=== PATIENT | male | born 1975 | race Caucasian/White ===

== ENCOUNTER 2016-06-16 15:30 | Emergency (ER) | payer OTHER ==
[2016-06-16] MEDS ORDERED: VANCOMYCIN 1000 MG/20 ML VIAL (J3370) As Ordered ONE (17:01)
--- NOTE | 2016-06-16 18:59 | EDDOCDS ---
Physician Documentation [facility] Name: Ta Day Age: 40 yrs Sex: Male : 1975 Arrival Date: 06/16/2016 Time: 15:30 Bed I1 / M1 Private MD: [place] A. Disposition: 06/16/16 17:15 Discharged to Home/Self Care. Impression: Cellulitis of face - periorbital. - Condition is Stable. - Discharge Instructions: Cellulitis, Cellulitis, [id number]. - Prescriptions for Doxycycline Monohydrate 100 mg Oral Tablet - take 1 tablet by ORAL route every 12 hours for 10 days; 20 tablet. - Medication Reconciliation, Local Pharmacy Hours form. - Follow up: Emergency Department; When: Tomorrow; Reason: Recheck today's complaints. - Problem is new. - Symptoms are unchanged. Historical: - Allergies: Keflex (Rash); PENICILLINS (Unknown); - Home Meds: 1. Atarax 25 mg Oral tab 1 tab 4 times per day - PMHx: Anxiety; PTSD; Hypertension; - PSHx: none; - Social history: Smoking status: Patient uses tobacco products, heavy tobacco smoker. No barriers to communication noted, The patient speaks fluent Namibian, Speaks appropriately for age. - Family history: Not pertinent. - : The pt / caregiver states he / she is not on anticoagulants. Home medication list is obtained from the patient. - Exposure Risk Screening:: None identified. Vital Signs: 06/16 15:32 BP 159 / 99 RA Sitting (auto/reg); Pulse 76; Resp 18; Temp 97.3(O); Pulse Ox 99% on jrd R/A; Weight 83.01 kg / 183.01 lbs (R); Height 6 ft. 0 in. (182.88 cm); Pain 6/10; 18:35 BP 125 / 83; Pulse 69; Resp 17; Temp 98.0(O); Pulse Ox 97% on R/A; lr2 15:32 Body Mass Index 24.82 (83.01 kg, 182.88 cm) jrd MDM: 16:38 vancomycin (loading dose for pt. wt. >= 80kg) 2000 mg IVPB once ordered. sd1 17:35 Financial registration complete. zo 17:42 [facility] Payment Agreement was scanned into [employer] and attached to record. zo Administered Medications: 17:17 Drug: vancomycin (loading dose for pt. wt. >= 80kg) 2000 mg Route: IVPB; Site: left mk4 antecubital; Signatures: Kasey Bernard MD MD sd1 Theresa Duff JoshuaRN RN jmb Marisa Fernando RN RN mk4 Shawnee Lora RN RN kc3 The chart was reviewed and I authenticate all verbal orders and agree with the evaluation and treatment provided.Attachments: 17:42 [facility] Payment Agreement zo MTDD
--- NOTE | 2016-06-16 18:59 | EDDOCDS ---
Nurse's Notes [facility] Name: Ta Day Age: 40 yrs Sex: Male : 1975 Arrival Date: 06/16/2016 Time: 15:30 Bed I1 / M1 Private MD: [place] A. Diagnosis: Cellulitis of face-periorbital Presentation: 06/16 15:34 Presenting complaint: Patient states: Patient reports eye swelling. Patient denies jmb drainage. Patient reports present since 4 days ago. Patient reports that it was completely closed and got eye open with warm water this morning. Mechanism of Injury: No Mechanism of Injury. The patient denies any loss of vision. Adult Sepsis Screening: The patient does not have new or worsening altered mentation. Patient's respiratory rate is less than 22. Systolic blood pressure is greater than 100. Patient has a qSOFA score of 0- Negative Sepsis Screen. Suicide/Homicide risk assessment- the patient denies having any suicidal and/or homicidal ideations and does not present with any other emotional, behavioral or mental health complaints. 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 Transition of care: patient was not received from another setting of care. 15:34 Acuity: SHANNON Level 4 [facility] 15:34 Method Of Arrival: Walkin/Carried/Asstd [facility] Triage Assessment: 15:35 General: Appears in no apparent distress, Behavior is appropriate for age, cooperative. b Pain: Location: left eye Pain currently is 6 out of 10 on a pain scale. HIV screening NA for this visit Offered previously. Neurological: Level of Consciousness is awake, alert, obeys commands, Oriented to person, place, time, Speech is normal, Facial symmetry appears normal, Facial symmetry: tongue is midline. EENT: No deficits noted. Respiratory: Airway is patent Respiratory effort is even, unlabored, Respiratory pattern is regular, symmetrical. Derm: Skin is pink, warm & dry. Musculoskeletal: Range of motion intact in all extremities. Historical: - Allergies: Keflex (Rash); PENICILLINS (Unknown); - Home Meds: 1. Atarax 25 mg Oral tab 1 tab 4 times per day - PMHx: Anxiety; PTSD; Hypertension; - PSHx: none; - Social history: Smoking status: Patient uses tobacco products, heavy tobacco smoker. No barriers to communication noted, The patient speaks fluent Romanian, Speaks appropriately for age. - Family history: Not pertinent. - : The pt / caregiver states he / she is not on anticoagulants. Home medication list is obtained from the patient. - Exposure Risk Screening:: None identified. Screenin:06 Screening information is obtained from the patient. Fall risk: No risks identified. kc3 Assistance ADL's: requires no assistance with activities of daily living. Abuse/DV Screen: The patient / caregiver reports he/she is: not in a situation that causes fear, pain or injury. Nutritional screening: No deficits noted. Advance Directives: Currently, there is no health care proxy. home support is adequate. Assessment: 17:05 General: Appears in no apparent distress, comfortable, Behavior is appropriate for age, kc3 cooperative. Neurological: No deficits noted. Respiratory: No deficits noted. Derm: Swollen area noted on face. 17:07 EENT: Eyes clear. Sclera/Cornea are clear in right eye and left eye. kc3 17:41 General: Appears in no apparent distress, comfortable, iv vanco infusing . mk4 18:58 General: Appears in no apparent distress, comfortable, Behavior is cooperative, iv mk4 antibiotics infused and IV d/cd . Vital Signs: 15:32 BP 159 / 99 RA Sitting (auto/reg); Pulse 76; Resp 18; Temp 97.3(O); Pulse Ox 99% on jrd R/A; Weight 83.01 kg (R); Height 6 ft. 0 in. (182.88 cm); Pain 6/10; 18:35 BP 125 / 83; Pulse 69; Resp 17; Temp 98.0(O); Pulse Ox 97% on R/A; lr2 15:32 Body Mass Index 24.82 (83.01 kg, 182.88 cm) [facility] Vitals: 15:32 Log In Time: June 16, 2016 at 15:30. [facility] ED Course: 15:31 Patient visited by Donavan Pierre PCA. jrd 15:31 Patient moved to Waiting jrd 15:32 [place] is Private Physician. jrd 15:33 Patient visited by Donavan Pierre PCA. jrd 15:33 Patient moved to Pre RCE jrd 15:35 Triage Initiated jolynn 16:24 Kasey Bernard MD is Attending Physician. sd1 16:24 Patient moved to I10 / 23 ml6 16:31 Patient visited by Marisa Fernando, GRACY. mk4 16:32 Patient visited by Kasey Bernard MD. sd1 16:49 Patient moved to I1 / M1 mk4 17:05 The patient / caregiver is instructed regarding the plan of care and ED course. kc3 17:05 Inserted saline lock: 20 gauge in left antecubital area The patient tolerated the kc3 procedure well. 17:08 Patient visited by Shawnee Lora,GRACY. kc3 17:41 No procedures done that require assistance. mk4 17:42 Patient name changed from Ta\S\\S\Shay\S\ to At\S\ \S\[facility]. EDMS 17:42 [facility] Payment Agreement was scanned into [employer] and attached to record. zo 18:56 Discontinued IV lock bleeding controlled, pressure dressing applied. mk4 Administered Medications: 17:17 Drug: vancomycin (loading dose for pt. wt. >= 80kg) 2000 mg Route: IVPB; Site: left mk4 antecubital; Order Results: There are currently no results for this order. Outcome: 17:15 Discharge ordered by Provider. sd1 18:56 Discharge Assessment: Patient awake, alert and oriented x 3. No cognitive and/or mk4 functional deficits noted. Patient verbalized understanding of disposition instructions. Patient awake and alert. Discharge Assessment: patient administered narcotics - no. The following High Risk Discharge criteria are identified: None. Condition: good Condition: stable. 18:58 Patient left the ED. 4 Signatures: Dispatcher MedHo EDCT Kasey Bernard MD MD sd1 Theresa Duff Matthew, RN RN ml6 Laurent AnnRN RN laurib Marisa Fernando, RN RN mk4 Donavan Pierre, ANTONIO PROMOTIONS MANAGER jrd Shawnee Lora,GRACY RN phil3 Michelle Batres lr2 MTDD
--- NOTE | 2016-06-18 19:59 | EDDOCDS ---
Nurse's Notes [facility] Name: Ta Day Age: 40 yrs Sex: Male : 1975 Arrival Date: 06/16/2016 Time: 15:30 Bed I1 / M1 Private MD: Joens Beach A. Diagnosis: Cellulitis of face-periorbital Presentation: 06/16 15:34 Presenting complaint: Patient states: Patient reports eye swelling. Patient denies jmb drainage. Patient reports present since 4 days ago. Patient reports that it was completely closed and got eye open with warm water this morning. Mechanism of Injury: No Mechanism of Injury. The patient denies any loss of vision. Adult Sepsis Screening: The patient does not have new or worsening altered mentation. Patient's respiratory rate is less than 22. Systolic blood pressure is greater than 100. Patient has a qSOFA score of 0- Negative Sepsis Screen. Suicide/Homicide risk assessment- the patient denies having any suicidal and/or homicidal ideations and does not present with any other emotional, behavioral or mental health complaints. 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 Transition of care: patient was not received from another setting of care. 15:34 Acuity: SHANNON Level [address] [facility] 15:34 Method Of Arrival: Walkin/Carried/Asstd [facility] Triage Assessment: 15:35 General: Appears in no apparent distress, Behavior is appropriate for age, cooperative. b Pain: Location: left eye Pain currently is 6 out of 10 on a pain scale. HIV screening NA for this visit Offered previously. Neurological: Level of Consciousness is awake, alert, obeys commands, Oriented to person, place, time, Speech is normal, Facial symmetry appears normal, Facial symmetry: tongue is midline. EENT: No deficits noted. Respiratory: Airway is patent Respiratory effort is even, unlabored, Respiratory pattern is regular, symmetrical. Derm: Skin is pink, warm & dry. Musculoskeletal: Range of motion intact in all extremities. Historical: - Allergies: Keflex (Rash); PENICILLINS (Unknown); - Home Meds: 1. Atarax 25 mg Oral tab 1 tab 4 times per day - PMHx: Anxiety; PTSD; Hypertension; - PSHx: none; - Social history: Smoking status: Patient uses tobacco products, heavy tobacco smoker. No barriers to communication noted, The patient speaks fluent Syriac, Speaks appropriately for age. - Family history: Not pertinent. - : The pt / caregiver states he / she is not on anticoagulants. Home medication list is obtained from the patient. - Exposure Risk Screening:: None identified. Screenin:06 Screening information is obtained from the patient. Fall risk: No risks identified. kc3 Assistance ADL's: requires no assistance with activities of daily living. Abuse/DV Screen: The patient / caregiver reports he/she is: not in a situation that causes fear, pain or injury. Nutritional screening: No deficits noted. Advance Directives: Currently, there is no health care proxy. home support is adequate. Assessment: 17:05 General: Appears in no apparent distress, comfortable, Behavior is appropriate for age, kc3 cooperative. Neurological: No deficits noted. Respiratory: No deficits noted. Derm: Swollen area noted on face. 17:07 EENT: Eyes clear. Sclera/Cornea are clear in right eye and left eye. kc3 17:41 General: Appears in no apparent distress, comfortable, iv vanco infusing . mk4 18:58 General: Appears in no apparent distress, comfortable, Behavior is cooperative, iv mk4 antibiotics infused and IV d/cd . Vital Signs: 15:32 BP 159 / 99 RA Sitting (auto/reg); Pulse 76; Resp 18; Temp 97.3(O); Pulse Ox 99% on jrd R/A; Weight 83.01 kg (R); Height 6 ft. 0 in. (182.88 cm); Pain 6/10; 18:35 BP 125 / 83; Pulse 69; Resp 17; Temp 98.0(O); Pulse Ox 97% on R/A; lr2 15:32 Body Mass Index 24.82 (83.01 kg, 182.88 cm) [facility] Vitals: 15:32 Log In Time: June 16, 2016 at 15:30. [facility] ED Course: 15:31 Patient visited by Donavan Pierre PCA. jrd 15:31 Patient moved to Waiting jrd 15:32 [place] is Private Physician. jrd 15:33 Patient visited by Donavan Pierre PCA. jrd 15:33 Patient moved to Pre RCE jrd 15:35 Triage Initiated jolynn 16:24 Kasey Bernard MD is Attending Physician. sd1 16:24 Patient moved to I10 / 23 ml6 16:31 Patient visited by Marisa Fernando, GRACY. mk4 16:32 Patient visited by Kasey Bernard MD. sd1 16:49 Patient moved to I1 / M1 mk4 17:05 The patient / caregiver is instructed regarding the plan of care and ED course. kc3 17:05 Inserted saline lock: 20 gauge in left antecubital area The patient tolerated the kc3 procedure well. 17:08 Patient visited by Shawnee Lora,GRACY. kc3 17:41 No procedures done that require assistance. mk4 17:42 Patient name changed from Ta\S\\S\Shay\S\ to Ta\S\ \S\[facility]. EDMS 17:42 [facility] [place] [place] Payment Agreement was scanned into [employer] and attached to record. zo 18:56 Discontinued IV lock bleeding controlled, pressure dressing applied. 4 06/17 10:39 T-Sheet-- Draft Copy was scanned into [employer] and attached to record. gb Administered Medications: 06/16 17:17 Drug: vancomycin (loading dose for pt. wt. >= 80kg) 2000 mg Route: IVPB; Site: left mk4 antecubital; Order Results: There are currently no results for this order. Outcome: 17:15 Discharge ordered by Provider. sd1 18:56 Discharge Assessment: Patient awake, alert and oriented x 3. No cognitive and/or mk4 functional deficits noted. Patient verbalized understanding of disposition instructions. Patient awake and alert. Discharge Assessment: patient administered narcotics - no. The following High Risk Discharge criteria are identified: None. Condition: good Condition: stable. 18:58 Patient left the ED. mk4 18:58 No special radiology studies were completed. Property sent home with patient. mk4 Signatures: Dispatcher MedHo EDNC Kasey Bernard MD MD sd1 Janel Flores, Bala Reg Theresa Russell Matthew, RN RN ml6 Laurent Ann RN RN jmb Marisa Fernando, RN RN mk4 Donavan Pierre, RELIEF COOK RELIEF COOK jrd Shawnee Lora,RN RN phil3 Michelle Batres Chart Complete MTDD
--- NOTE | 2016-06-18 19:59 | EDDOCDS ---
Physician Documentation [facility] Name: Ta Day Age: 40 yrs Sex: Male : 1975 Arrival Date: 06/16/2016 Time: 15:30 Bed I1 / M1 Private MD: [place] A. Disposition: 06/16/16 17:15 Discharged to Home/Self Care. Impression: Cellulitis of face - periorbital. - Condition is Stable. - Discharge Instructions: Cellulitis, Cellulitis, [id number]. - Prescriptions for Doxycycline Monohydrate 100 mg Oral Tablet - take 1 tablet by ORAL route every 12 hours for 10 days; 20 tablet. - Medication Reconciliation, Local Pharmacy Hours form. - Follow up: Emergency Department; When: Tomorrow; Reason: Recheck today's complaints. - Problem is new. - Symptoms are unchanged. Historical: - Allergies: Keflex (Rash); PENICILLINS (Unknown); - Home Meds: 1. Atarax 25 mg Oral tab 1 tab 4 times per day - PMHx: Anxiety; PTSD; Hypertension; - PSHx: none; - Social history: Smoking status: Patient uses tobacco products, heavy tobacco smoker. No barriers to communication noted, The patient speaks fluent Bahraini, Speaks appropriately for age. - Family history: Not pertinent. - : The pt / caregiver states he / she is not on anticoagulants. Home medication list is obtained from the patient. - Exposure Risk Screening:: None identified. Vital Signs: 06/16 15:32 BP 159 / 99 RA Sitting (auto/reg); Pulse 76; Resp 18; Temp 97.3(O); Pulse Ox 99% on jrd R/A; Weight 83.01 kg / 183.01 lbs (R); Height 6 ft. 0 in. (182.88 cm); Pain 6/10; 18:35 BP 125 / 83; Pulse 69; Resp 17; Temp 98.0(O); Pulse Ox 97% on R/A; lr2 15:32 Body Mass Index 24.82 (83.01 kg, 182.88 cm) jrd MDM: 16:38 vancomycin (loading dose for pt. wt. >= 80kg) 2000 mg IVPB once ordered. sd1 17:35 Financial registration complete. zo 17:42 [facility] Payment Agreement was scanned into [employer] and attached to record. zo 06/17 10:39 T-Sheet-- Draft Copy was scanned into [employer] and attached to record. gb Administered Medications: 06/16 17:17 Drug: vancomycin (loading dose for pt. wt. >= 80kg) 2000 mg Route: IVPB; Site: left mk4 antecubital; Signatures: Kasey Bernard MD MD sd1 Janel Flores, Reg Reg gb Theresa Duff Joshua, RN RN jmb Marisa Fernando RN RN mk4 Shawnee Lora RN RN kc3 The chart was reviewed and I authenticate all verbal orders and agree with the evaluation and treatment provided.Attachments: 17:42 [facility] Payment Agreement zo 06/17 10:39 T-Sheet-- Draft Copy gb Chart Complete MTDD
--- NOTE | 2016-06-18 19:59 | EDDOCDS ---
Physician Documentation [facility] Name: Ta Day Age: 40 yrs Sex: Male : 1975 Arrival Date: 06/16/2016 Time: 15:30 Bed I1 / M1 Private MD: [place] A. Disposition: 06/16/16 17:15 Discharged to Home/Self Care. Impression: Cellulitis of face - periorbital. - Condition is Stable. - Discharge Instructions: Cellulitis, Cellulitis, [id number]. - Prescriptions for Doxycycline Monohydrate 100 mg Oral Tablet - take 1 tablet by ORAL route every 12 hours for 10 days; 20 tablet. - Medication Reconciliation, Local Pharmacy Hours form. - Follow up: Emergency Department; When: Tomorrow; Reason: Recheck today's complaints. - Problem is new. - Symptoms are unchanged. Historical: - Allergies: Keflex (Rash); PENICILLINS (Unknown); - Home Meds: 1. Atarax 25 mg Oral tab 1 tab 4 times per day - PMHx: Anxiety; PTSD; Hypertension; - PSHx: none; - Social history: Smoking status: Patient uses tobacco products, heavy tobacco smoker. No barriers to communication noted, The patient speaks fluent Andorran, Speaks appropriately for age. - Family history: Not pertinent. - : The pt / caregiver states he / she is not on anticoagulants. Home medication list is obtained from the patient. - Exposure Risk Screening:: None identified. Vital Signs: 06/16 15:32 BP 159 / 99 RA Sitting (auto/reg); Pulse 76; Resp 18; Temp 97.3(O); Pulse Ox 99% on jrd R/A; Weight 83.01 kg / 183.01 lbs (R); Height 6 ft. 0 in. (182.88 cm); Pain 6/10; 18:35 BP 125 / 83; Pulse 69; Resp 17; Temp 98.0(O); Pulse Ox 97% on R/A; lr2 15:32 Body Mass Index 24.82 (83.01 kg, 182.88 cm) jrd MDM: 16:38 vancomycin (loading dose for pt. wt. >= 80kg) 2000 mg IVPB once ordered. sd1 17:35 Financial registration complete. zo 17:42 [facility] Payment Agreement was scanned into [employer] and attached to record. zo 06/17 10:39 T-Sheet-- Draft Copy was scanned into [employer] and attached to record. gb Administered Medications: 06/16 17:17 Drug: vancomycin (loading dose for pt. wt. >= 80kg) 2000 mg Route: IVPB; Site: left mk4 antecubital; Signatures: Kasey Bernard MD MD sd1 Janel Flores, Reg Reg gb Theresa Duff Joshua, RN RN jmb Marisa Fernando RN RN mk4 Shawnee Lora RN RN kc3 The chart was reviewed and I authenticate all verbal orders and agree with the evaluation and treatment provided.Attachments: 17:42 [facility] zo 06/17 10:39 T-Sheet-- Draft Copy gb Chart Complete MTDD
== END 2016-06-16 18:58 | disposition home or self-care (01) ==
LOC: M ED 15:30
DX: L03.213 Periorbital cellulitis (principal); F41.9 Anxiety disorder, unspecified; F43.10 Post-traumatic stress disorder, unspecified; I10 Essential (primary) hypertension; Z72.0 Tobacco use; Z79.899 Other long term (current) drug therapy; Z88.0 Allergy status to penicillin; Z88.1 Allergy status to other antibiotic agents
CPT/HCPCS: 96374; 99283; J3370

== ENCOUNTER 2016-06-17 12:08 | Emergency (ER) | payer OTHER ==
--- NOTE | 2016-06-17 12:48 | EDDOCDS ---
Nurse's Notes [facility] Name: Ta Day Age: 40 yrs Sex: Male : 1975 Arrival Date: 06/17/2016 Time: 12:08 Bed I10 23 Private MD: [place] A. Diagnosis: Cellulitis of face-improved Presentation: 06/17 12:23 Presenting complaint: Patient states: here for a recheck of his left eye - states it kcs feels a lot better "actually open this am when got up". Adult Sepsis Screening: The patient does not have new or worsening altered mentation. Patient's respiratory rate is less than 22. Systolic blood pressure is greater than 100. Patient has a qSOFA score of 0- Negative Sepsis Screen. Suicide/Homicide risk assessment- the patient denies having any suicidal and/or homicidal ideations and does not present with any other emotional, behavioral or mental health complaints. 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 Transition of care: patient was not received from another setting of care. 12:23 Acuity: SHANNON Level 5 kcs 12:23 Method Of Arrival: Walkin/Carried/Asstd kcs Triage Assessment: 12:26 General: Appears comfortable, well developed, well nourished, well groomed, Behavior is kcs cooperative, pleasant. Pain: Location: left eye Pain currently is 2 out of 10 on a pain scale. HIV screening NA for this visit Offered previously. Neurological: Level of Consciousness is awake, alert. Respiratory: Airway is patent Respiratory effort is even, unlabored, Respiratory pattern is regular, symmetrical. Derm: Skin is intact, is healthy with good turgor, Skin is dry, Skin is normal. 12:30 EENT: swelling to left eye much improved from yesterday . mk4 Historical: - Allergies: Keflex (Rash); PENICILLINS (Unknown); - Home Meds: 1. Atarax 25 mg Oral tab 1 tab 4 times per day 2. doxycycline hyclate 100 mg oral cap every 12 hours hasn't started yet - PMHx: Anxiety; Hypertension; PTSD; - PSHx: none; - Social history: Smoking status: Patient uses tobacco products, heavy tobacco smoker. No barriers to communication noted, The patient speaks fluent Danish. - Family history: Not pertinent. - : The pt / caregiver states he / she is not on anticoagulants. Home medication list is obtained from the patient. - Exposure Risk Screening:: None identified. Screenin:29 Screening information is obtained from the patient. Primary language is Danish. Fall mk4 risk: No risks identified. Assistance ADL's: requires no assistance with activities of daily living. Abuse/DV Screen: The patient / caregiver reports he/she is: not in a situation that causes fear, pain or injury. Nutritional screening: No deficits noted. Advance Directives: Currently, there is no health care proxy. There is no active DNR order. There is no living will. There is no Power of Truck Driver. Advance directive information has not previously been placed in an [facility] medical record. Further advance directive information is declined. 12:46 home support is adequate. mk4 Assessment: 12:29 General: Appears in no apparent distress. Pain: Denies pain. Awake, alert, oriented. mk4 Skin warm and dry. Moves all extremities. No apparent distress. The patient / caregiver is instructed regarding the plan of care and ED course. Physical assessment to be completed by PA/ED. Vital Signs: 12:09 BP 161 / 101; Pulse 82; Resp 18 S; Temp 97.9(O); Pulse Ox 97% on R/A; Weight 83.01 kg gr2 (R); Height 6 ft. 0 in. (182.88 cm) (R); Pain 2/10; 12:09 Body Mass Index 24.82 (83.01 kg, 182.88 cm) gr2 Vitals: 12:09 Log In Time: June 17, 2016 at 12:09. gr2 ED Course: 12:09 Patient visited by Elisa Junior. gr2 12:09 [place] is Private Physician. gr2 12:09 Patient moved to Waiting gr2 12:10 Patient visited by Elisa Junior. gr2 12:10 Patient moved to Pre RCE gr2 12:24 Triage Initiated kcs 12:26 Patient moved to I10 / 23 kcs 12:27 Kasey Bernard MD is Attending Physician. sd1 12:29 Patient visited by Kasey Bernard MD. sd1 12:29 [place] is Referral Physician. sd1 12:29 Patient has correct armband on for positive identification. mk4 12:46 The patient / caregiver is instructed regarding the plan of care and ED course. mk4 12:46 No IV's were initiated during this patient's visit. No procedures done that require mk4 assistance. Order Results: There are currently no results for this order. Outcome: 12:29 The following High Risk Discharge criteria are identified: None. mk4 12:30 Discharge ordered by Provider. sd1 12:31 Discharge Assessment: Patient awake, alert and oriented x 3. No cognitive and/or mk4 functional deficits noted. Patient verbalized understanding of disposition instructions. Patient awake and alert. Discharge Assessment: patient administered narcotics - no. Condition: good Condition: stable. No special radiology studies were completed. Property sent home with patient. 12:47 Patient left the ED. 4 Signatures: Kasey Bernard MD MD sd1 Liset Zelaya, RN RN Elisa Rollins gr2 Marisa Fernando RN RN mk4 MATTY
--- NOTE | 2016-06-17 12:48 | EDDOCDS ---
Physician Documentation [facility] Name: Ta Day Age: 40 yrs Sex: Male : 1975 Arrival Date: 06/17/2016 Time: 12:08 Bed I10 Private MD: [place] A. Disposition: 06/17/16 12:30 Discharged to Home/Self Care. Impression: Cellulitis of face - improved. - Condition is Stable. - Discharge Instructions: Cellulitis, Cellulitis, [id number]. - Medication Reconciliation, Local Pharmacy Hours form. - Follow up: [place]; When: 2 - 3 days; Reason: Recheck today's complaints. - Problem is new. - Symptoms have improved. - Notes: continue doxycyline Historical: - Allergies: Keflex (Rash); PENICILLINS (Unknown); - Home Meds: 1. Atarax 25 mg Oral tab 1 tab 4 times per day 2. doxycycline hyclate 100 mg oral cap every 12 hours hasn't started yet - PMHx: Anxiety; Hypertension; PTSD; - PSHx: none; - Social history: Smoking status: Patient uses tobacco products, heavy tobacco smoker. No barriers to communication noted, The patient speaks fluent Welsh. - Family history: Not pertinent. - : The pt / caregiver states he / she is not on anticoagulants. Home medication list is obtained from the patient. - Exposure Risk Screening:: None identified. Vital Signs: 06/17 12:09 BP 161 / 101; Pulse 82; Resp 18 S; Temp 97.9(O); Pulse Ox 97% on R/A; Weight 83.01 kg / gr2 183.01 lbs (R); Height 6 ft. 0 in. (182.88 cm) (R); Pain 2/10; 12:09 Body Mass Index 24.82 (83.01 kg, 182.88 cm) gr2 Signatures: Kasey Bernard MD MD sd1 Liset Zelaya RN RN kcs Marisa Fernando RN RN mk4 MTDD
--- NOTE | 2016-06-19 13:48 | EDDOCDS ---
Physician Documentation [facility] Name: Ta Day Age: 40 yrs Sex: Male : 1975 Arrival Date: 06/17/2016 Time: 12:08 Bed I10 23 Private MD: [place] A. Disposition: 06/17/16 12:30 Discharged to Home/Self Care. Impression: Cellulitis of face - improved. - Condition is Stable. - Discharge Instructions: Cellulitis, Cellulitis, [id number]. - Medication Reconciliation, Local Pharmacy Hours form. - Follow up: [place]; When: 2 - 3 days; Reason: Recheck today's complaints. - Problem is new. - Symptoms have improved. - Notes: continue doxycyline Historical: - Allergies: Keflex (Rash); PENICILLINS (Unknown); - Home Meds: 1. Atarax 25 mg Oral tab 1 tab 4 times per day 2. doxycycline hyclate 100 mg oral cap every 12 hours hasn't started yet - PMHx: Anxiety; Hypertension; PTSD; - PSHx: none; - Social history: Smoking status: Patient uses tobacco products, heavy tobacco smoker. No barriers to communication noted, The patient speaks fluent Azerbaijani. - Family history: Not pertinent. - : The pt / caregiver states he / she is not on anticoagulants. Home medication list is obtained from the patient. - Exposure Risk Screening:: None identified. Vital Signs: 06/17 12:09 BP 161 / 101; Pulse 82; Resp 18 S; Temp 97.9(O); Pulse Ox 97% on R/A; Weight 83.01 kg / gr2 183.01 lbs (R); Height 6 ft. 0 in. (182.88 cm) (R); Pain 2/10; 12:09 Body Mass Index 24.82 (83.01 kg, 182.88 cm) gr2 MDM: 06/18 12:27 T-Sheet-- Draft Copy was scanned into [employer] and attached to record. gb Signatures: Kasey Bernard MD MD sd1 Liset Zelaya, RN RN Janel Ruiz, Reg Reg gb Marisa Fernando RN RN mk4 The chart was reviewed and I authenticate all verbal orders and agree with the evaluation and treatment provided.Attachments: 12:27 T-Sheet-- Draft Copy gb Chart Complete MTDD
--- NOTE | 2016-06-19 13:48 | EDDOCDS ---
Nurse's Notes [facility] Name: Ta Day Age: 40 yrs Sex: Male : 1975 Arrival Date: 06/17/2016 Time: 12:08 Bed I10 23 Private MD: [place] A. Diagnosis: Cellulitis of face-improved Presentation: 06/17 12:23 Presenting complaint: Patient states: here for a recheck of his left eye - states it kcs feels a lot better "actually open this am when got up". Adult Sepsis Screening: The patient does not have new or worsening altered mentation. Patient's respiratory rate is less than 22. Systolic blood pressure is greater than 100. Patient has a qSOFA score of 0- Negative Sepsis Screen. Suicide/Homicide risk assessment- the patient denies having any suicidal and/or homicidal ideations and does not present with any other emotional, behavioral or mental health complaints. Status: Patient is not a hosted services analyst or dependent. Transition of care: patient was not received from another setting of care. 12:23 Acuity: SHANNON Level 5 kcs 12:23 Method Of Arrival: Walkin/Carried/Asstd kcs Triage Assessment: 12:26 General: Appears comfortable, well developed, well nourished, well groomed, Behavior is kcs cooperative, pleasant. Pain: Location: left eye Pain currently is 2 out of 10 on a pain scale. HIV screening NA for this visit Offered previously. Neurological: Level of Consciousness is awake, alert. Respiratory: Airway is patent Respiratory effort is even, unlabored, Respiratory pattern is regular, symmetrical. Derm: Skin is intact, is healthy with good turgor, Skin is dry, Skin is normal. 12:30 EENT: swelling to left eye much improved from yesterday . mk4 Historical: - Allergies: Keflex (Rash); PENICILLINS (Unknown); - Home Meds: 1. Atarax 25 mg Oral tab 1 tab 4 times per day 2. doxycycline hyclate 100 mg oral cap every 12 hours hasn't started yet - PMHx: Anxiety; Hypertension; PTSD; - PSHx: none; - Social history: Smoking status: Patient uses tobacco products, heavy tobacco smoker. No barriers to communication noted, The patient speaks fluent Samoan. - Family history: Not pertinent. - : The pt / caregiver states he / she is not on anticoagulants. Home medication list is obtained from the patient. - Exposure Risk Screening:: None identified. Screenin:29 Screening information is obtained from the patient. Primary language is Samoan. Fall mk4 risk: No risks identified. Assistance ADL's: requires no assistance with activities of daily living. Abuse/DV Screen: The patient / caregiver reports he/she is: not in a situation that causes fear, pain or injury. Nutritional screening: No deficits noted. Advance Directives: Currently, there is no health care proxy. There is no active DNR order. There is no living will. There is no Power of Director Of [employer]. Advance directive information has not previously been placed in an [facility] medical record. Further advance directive information is declined. 12:46 home support is adequate. mk4 Assessment: 12:29 General: Appears in no apparent distress. Pain: Denies pain. Awake, alert, oriented. mk4 Skin warm and dry. Moves all extremities. No apparent distress. The patient / caregiver is instructed regarding the plan of care and ED course. Physical assessment to be completed by PA/ED. Vital Signs: 12:09 BP 161 / 101; Pulse 82; Resp 18 S; Temp 97.9(O); Pulse Ox 97% on R/A; Weight 83.01 kg gr2 (R); Height 6 ft. 0 in. (182.88 cm) (R); Pain 2/10; 12:09 Body Mass Index 24.82 (83.01 kg, 182.88 cm) gr2 Vitals: 12:09 Log In Time: June 17, 2016 at 12:09. gr2 ED Course: 12:09 Patient visited by Elisa Junior. gr2 12:09 [place] is Private Physician. gr2 12:09 Patient moved to Waiting gr2 12:10 Patient visited by Elisa Junior. gr2 12:10 Patient moved to Pre RCE gr2 12:24 Triage Initiated kcs 12:26 Patient moved to I10 / 23 kcs 12:27 Kasey Bernard MD is Attending Physician. sd1 12:29 Patient visited by Kasey Bernard MD. sd1 12:29 [place] is Referral Physician. sd1 12:29 Patient has correct armband on for positive identification. mk4 12:46 The patient / caregiver is instructed regarding the plan of care and ED course. mk4 12:46 No IV's were initiated during this patient's visit. No procedures done that require mk4 assistance. 14:00 Patient name changed from Ta\\S\\\\S\\[facility]\\S\\ to Ta\\S\\ \\S\\[facility]. EDMS 06/18 12:27 T-Sheet-- Draft Copy was scanned into [employer] and attached to record. Order Results: There are currently no results for this order. Outcome: 06/17 12:29 The following High Risk Discharge criteria are identified: None. mk4 12:30 Discharge ordered by Provider. sd1 12:31 Discharge Assessment: Patient awake, alert and oriented x 3. No cognitive and/or mk4 functional deficits noted. Patient verbalized understanding of disposition instructions. Patient awake and alert. Discharge Assessment: patient administered narcotics - no. Condition: good Condition: stable. No special radiology studies were completed. Property sent home with patient. 12:47 Patient left the ED. 4 Signatures: [facility] Kasey Bernard MD MD sd1 Liset Zelaya, RN RN kcs Janel Flores, Reg Reg Elisa Calvo gr2 Marisa Fernando, RN RN mk4 Chart Complete MTDD
--- NOTE | 2016-06-19 13:48 | EDDOCDS ---
Physician Documentation [facility] Name: Ta Day Age: 40 yrs Sex: Male : 1975 Arrival Date: 06/17/2016 Time: 12:08 Bed I10 23 Private MD: [place] A. Disposition: 06/17/16 12:30 Discharged to Home/Self Care. Impression: Cellulitis of face - improved. - Condition is Stable. - Discharge Instructions: Cellulitis, Cellulitis, [id number]. - Medication Reconciliation, Local Pharmacy Hours form. - Follow up: [place]; When: 2 - 3 days; Reason: Recheck today's complaints. - Problem is new. - Symptoms have improved. - Notes: continue doxycyline Historical: - Allergies: Keflex (Rash); PENICILLINS (Unknown); - Home Meds: 1. Atarax 25 mg Oral tab 1 tab 4 times per day 2. doxycycline hyclate 100 mg oral cap every 12 hours hasn't started yet - PMHx: Anxiety; Hypertension; PTSD; - PSHx: none; - Social history: Smoking status: Patient uses tobacco products, heavy tobacco smoker. No barriers to communication noted, The patient speaks fluent Wallisian. - Family history: Not pertinent. - : The pt / caregiver states he / she is not on anticoagulants. Home medication list is obtained from the patient. - Exposure Risk Screening:: None identified. Vital Signs: 06/17 12:09 BP 161 / 101; Pulse 82; Resp 18 S; Temp 97.9(O); Pulse Ox 97% on R/A; Weight 83.01 kg / gr2 183.01 lbs (R); Height 6 ft. 0 in. (182.88 cm) (R); Pain 2/10; 12:09 Body Mass Index 24.82 (83.01 kg, 182.88 cm) gr2 MDM: 06/18 12:27 T-Sheet-- Draft Copy was scanned into [employer] and attached to record. gb Signatures: Kasey Bernard MD MD sd1 Liset Zelaya, RN RN Janel Ruiz, Reg Reg gb Marisa Fernando RN RN mk4 The chart was reviewed and I authenticate all verbal orders and agree with the evaluation and treatment provided.Attachments: 12:27 T-Sheet-- Draft Copy gb Chart Complete MTDD
== END 2016-06-17 12:47 | disposition home or self-care (01) ==
LOC: M ED 12:08
DX: H00.034 Abscess of left upper eyelid (principal); I10 Essential (primary) hypertension; F43.10 Post-traumatic stress disorder, unspecified; F41.9 Anxiety disorder, unspecified; Z88.0 Allergy status to penicillin; Z88.1 Allergy status to other antibiotic agents

== ENCOUNTER 2016-07-17 21:27 | Emergency (ER) | payer OTHER ==
[~2016-07-17] VITALS: Ht 182.9 cm; Wt 90.7 kg
[2016-07-17 21:28] VITALS: BP 144/94
[2016-07-17] MEDS ORDERED: HYDR25T PO (21:45)
== END 2016-07-18 01:57 | disposition left against medical advice (07) ==
LOC: M ED 22:41
DX: S69.91XA Unspecified injury of right wrist, hand and finger(s), initial encounter (principal); W22.8XXA Striking against or struck by other objects, initial encounter; Y92.89 Other specified places as the place of occurrence of the external cause; Y93.89 Activity, other specified; Y99.8 Other external cause status; F17.210 Nicotine dependence, cigarettes, uncomplicated; Z53.29 Procedure and treatment not carried out because of patient's decision for other reasons

== ENCOUNTER 2016-07-19 15:11 | Emergency (ER) | payer OTHER ==
[~2016-07-19] VITALS: Ht 182.9 cm; Wt 90.7 kg
[~2016-07-19 15:11] MED LIST: HYDR25T PO
--- NOTE | 2016-07-19 16:09 | REP ---
Clinical: Trauma. Technique: AP, lateral, bilateral oblique views of the right hand. Findings: There is an acute, angulated fracture involving the distal aspect of the fifth metacarpal bone (boxer's fracture). Remainder examination is relatively normal for age and no further acute fracture or dislocation is appreciated. Impression: Boxer's fracture involving the distal aspect of the fifth metacarpal bone. Signed by Julio James MD 07/19/2016 04:00 P
[2016-07-19 16:59] VITALS: BP 138/80
== END 2016-07-19 17:03 | disposition home or self-care (01) ==
LOC: M ED 16:14
DX: S62.306A Unspecified fracture of fifth metacarpal bone, right hand, initial encounter for closed fracture (principal); X58.XXXA Exposure to other specified factors, initial encounter; Y92.89 Other specified places as the place of occurrence of the external cause; Y93.89 Activity, other specified; Y99.8 Other external cause status; B19.20 Unspecified viral hepatitis C without hepatic coma; F19.21 Other psychoactive substance dependence, in remission; Z79.899 Other long term (current) drug therapy; Z88.0 Allergy status to penicillin; Z88.1 Allergy status to other antibiotic agents; F17.210 Nicotine dependence, cigarettes, uncomplicated

== ENCOUNTER 2016-11-13 18:47 | Emergency (ER) | payer OTHER ==
[~2016-11-13] VITALS: Ht 182.9 cm; Wt 84.1 kg
[2016-11-13 18:47] VITALS: BP 173/102
[~2016-11-13 18:47] MED LIST changes: +HYDR-3363 PO; -HYDR25T PO
[2016-11-13] MEDS ORDERED: IBUP-1114 PO (18:54)
[2016-11-13] MEDS ORDERED: NORCO, ANEXSIA 5/325MG TABLET (HYDROcodone/ACETAMINOPHEN) PO ONE (21:00)
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
== END 2016-11-13 21:16 | disposition home or self-care (01) ==
LOC: M ED 18:47
DX: S60.021A Contusion of right index finger without damage to nail, initial encounter (principal); X58.XXXA Exposure to other specified factors, initial encounter; Y92.015 Private garage of single-family (private) house as the place of occurrence of the external cause; Y99.9 Unspecified external cause status; Y93.9 Activity, unspecified; Z88.1 Allergy status to other antibiotic agents

== ENCOUNTER → 2018-07-15 | Outpatient (REF) | payer OTHER ==
[~2018-07-15] MED LIST changes: +IBUP-1114 PO
[2018-07-15 10:42] LABS: HEMATOCRIT 48.2 % (42.0-52.0); HEMOGLOBIN 16.8 g/dl (13.5-17.5); MEAN CORPUSCULAR HEMOGLOBIN 31.3 pg (27.0-33.0); MEAN CORPUSCULAR HGB CONC 34.9 g/dl (32.0-36.5); MEAN CORPUSCULAR VOLUME 89.8 fl (80.0-96.0); PLATELET COUNT, AUTOMATED 311 10^3/uL (150-450); RED BLOOD COUNT 5.37 10^6/uL (4.30-6.10); WHITE BLOOD COUNT 7.7 10^3/uL (4.0-10.0)
[2018-07-15 11:13] LABS: ALBUMIN 4.4 GM/DL (3.2-5.2); ALT/SGPT 70 U/L (12-78); BILIRUBIN,TOTAL 0.3 MG/DL (0.2-1.0); BLOOD UREA NITROGEN 12 MG/DL (7-18); CALCIUM LEVEL 9.4 MG/DL (8.5-10.1); CARBON DIOXIDE LEVEL 27 MEQ/L (21-32); CHLORIDE LEVEL 106 MEQ/L (98-107); CREATININE FOR GFR 1.12 MG/DL (0.70-1.30); FREE T4 1.07 NG/DL (0.76-1.46); GLOMERULAR FILTRATION RATE > 60.0 (>60); GLUCOSE, FASTING 85 MG/DL (70-100); POTASSIUM SERUM 4.4 MEQ/L (3.5-5.1); SODIUM LEVEL 142 MEQ/L (136-145); THYROID STIMULATING HORMONE 0.713 uIU/ML (0.358-3.740); TOTAL PROTEIN 7.8 GM/DL (6.4-8.2)
[2018-07-15 11:24] LABS: MALB URINE SIEMENS 36.5 MG/L; MAU/CREAT RATIO 18.3 MCG/MG (0.0-30.0)
[2018-07-15 11:53] LABS: HIV 1&2 SCREEN CENTAUR NEGATIVE (NEGATIVE)
[2018-07-16 11:36] LABS: HEPATITIS B SURFACE ANTIBODY NEGATIVE (POSITIVE)
[2018-07-16 11:47] LABS: HEPATITIS B SURFACE ANTIGEN NEGATIVE (NEGATIVE)
[2018-07-21 00:08] LABS: HCV RNA (INTERNATIONAL UNITS) 37145000 IU/mL (.); HEPATITIS A IgG TOTAL Negative (Negative); HEPATITIS B CORE ANTIBODY IGG Negative (Negative); HEPATITIS C QUANTITATION See Final Results IU/mL (.); HEPATITIS C VIRUS GENOTYPE 1a (.)
== END ==
LOC: M SFHCPLAZ 08:21
PROVIDERS: ATTEND Physician Assistant
DX: Z00.00 Encounter for general adult medical examination without abnormal findings (principal); R76.8 Other specified abnormal immunological findings in serum; I10 Essential (primary) hypertension

== ENCOUNTER → 2018-08-05 | Outpatient (REF) | payer OTHER ==
[2018-08-05 10:52] LABS: CHOLESTEROL RISK RATIO 5.153 (<5)
== END ==
LOC: M SFHCPLAZ 08:11
PROVIDERS: ATTEND Physician Assistant
DX: Z13.220 Encounter for screening for lipoid disorders (principal)

== ENCOUNTER → 2018-08-26 | Outpatient (REF) | payer OTHER | LOC: M SFHCPLAZ 08:26 | PROVIDERS: ATTEND Internal Medicine Infectious Disease | DX: B18.2 Chronic viral hepatitis C (principal) ==

== ENCOUNTER → 2018-08-26 | Outpatient (CLI) | payer OTHER ==
[2018-08-26 10:12] LABS: ALBUMIN 4.3 GM/DL (3.2-5.2); BILIRUBIN,DIRECT 0.1 MG/DL (0.0-0.2); BILIRUBIN,TOTAL 0.5 MG/DL (0.2-1.0)
[2018-08-30 14:10] LABS: HEPATITIS C QUANTITATION <15 IU/mL (.)
== END ==
LOC: M LAB 09:16
PROVIDERS: ATTEND Internal Medicine Infectious Disease
DX: B18.2 Chronic viral hepatitis C (principal)

== ENCOUNTER → 2018-12-31 | Outpatient (REF) | payer MEDICAID ==
[2018-12-31 13:23] LABS: ALBUMIN 4.3 GM/DL (3.2-5.2); ALT/SGPT 46 U/L (12-78); BILIRUBIN,TOTAL 0.3 MG/DL (0.2-1.0); BLOOD UREA NITROGEN 10 MG/DL (7-18); CALCIUM LEVEL 9.5 MG/DL (8.5-10.1); CARBON DIOXIDE LEVEL 28 MEQ/L (21-32); CHLORIDE LEVEL 106 MEQ/L (98-107); CREATININE FOR GFR 1.09 MG/DL (0.70-1.30); GLOMERULAR FILTRATION RATE > 60.0 (>60); GLUCOSE, FASTING 101 MG/DL (70-100); POTASSIUM SERUM 4.4 MEQ/L (3.5-5.1); SODIUM LEVEL 141 MEQ/L (136-145); TOTAL PROTEIN 7.8 GM/DL (6.4-8.2)
[2019-01-04 14:07] LABS: HEPATITIS C QUANTITATION HCV Not Detected IU/mL (.)
== END ==
LOC: M SFHCPLAZ 09:08
PROVIDERS: ATTEND Internal Medicine Infectious Disease
DX: B18.2 Chronic viral hepatitis C (principal)

== ENCOUNTER 2019-08-25 14:46 | Emergency (ER) | payer MEDICAID, OTHER ==
[~2019-08-25] VITALS: Ht 182.9 cm; Wt 91.5 kg
[2019-08-25] MEDS ORDERED: methylPREDNISolone INJ 125 MG/2 ML VIAL (J2930) IM ONE (15:15)
[2019-08-25] MEDS ORDERED: IBUPROFEN 400 MG TAB PO ONE (15:15)
[2019-08-25] MEDS ORDERED: ACETAMINOPHEN 500 MG TAB PO ONE (15:15)
[2019-08-25] MEDS ORDERED: CYCLOBENZAPRINE 10MG TABLET PO ONE (15:15)
[2019-08-25] MEDS ORDERED: LIDOCAINE 5% (LIDODERM) PATCH TD ONE (15:15)
[2019-08-25] MEDS ORDERED: MORPHINE 10 MG/ML 1ML VIAL (J2270) IM ONE (16:15)
[2019-08-25 16:50] LABS: BASO # 0.1 10^3/uL (0.0-0.2); BASO % 0.7 % (0.0-1.0); EOS % 0.3 % (0.0-3.0); HEMATOCRIT 45.2 % (42.0-52.0); HEMOGLOBIN 15.4 g/dl (13.5-17.5); LYMPH # 2.2 10^3/uL (1.5-5.0); LYMPH % 18.8 % (24.0-44.0); MEAN CORPUSCULAR HEMOGLOBIN 30.9 pg (27.0-33.0); MEAN CORPUSCULAR HGB CONC 34.1 g/dl (32.0-36.5); MEAN CORPUSCULAR VOLUME 90.6 fl (80.0-96.0); MONO # 0.6 10^3/uL (0.0-0.8); MONO % 5.1 % (0.0-5.0); NEUTROPHILS # 8.8 10^3/uL (1.5-8.5); NEUTROPHILS % 74.8 % (36.0-66.0); PLATELET COUNT, AUTOMATED 307 10^3/uL (150-450); RED BLOOD COUNT 4.99 10^6/uL (4.30-6.10); WHITE BLOOD COUNT 11.7 10^3/uL (4.0-10.0)
[2019-08-25 17:25] LABS: APPEARANCE, URINE CLEAR (CLEAR); BACTERIA, URINE AUTO NEGATIVE (NEGATIVE); BILIRUBIN, URINE AUTO NEGATIVE (NEGATIVE); BLOOD, URINE BLOOD NEGATIVE (NEGATIVE); COLOR, URINE YELLOW (YELLOW); GLUCOSE, URINE (UA) AUTO NEGATIVE (NEGATIVE); KETONE, URINE AUTO NEGATIVE (NEGATIVE); LEUKOCYTE ESTERASE, URINE AUTO NEGATIVE (NEGATIVE); MUCUS, URINE SMALL (NEGATIVE); NITRITE, URINE AUTO NEGATIVE (NEGATIVE); PROTEIN, URINE AUTO NEGATIVE (NEGATIVE); RBC, URINE AUTO 3 /HPF (0-3); SPECIFIC GRAVITY URINE AUTO 1.015 (1.002-1.035); SQUAMOUS EPITHELIAL CELL UR AU 0 /HPF (0-6); UROBILINOGEN, URINE AUTO 0.2 mg/dL (0.0-2.0); WBC, URINE AUTO 1 /HPF (0-3)
[2019-08-25] MEDS ORDERED: MEDR4PAK PO (17:32)
[2019-08-25] MEDS ORDERED: CYCL-707 PO (17:32)
[2019-08-25 17:42] VITALS: BP 187/108
[2019-08-25] MEDS ORDERED: **NOTE PATIENT COMMENT** MISC XX SCH (21:00)
== END 2019-08-25 17:44 | disposition home or self-care (01) ==
LOC: M ED 14:46
DX: M54.9 Dorsalgia, unspecified (principal); I10 Essential (primary) hypertension; F17.200 Nicotine dependence, unspecified, uncomplicated; Z88.0 Allergy status to penicillin; Z88.1 Allergy status to other antibiotic agents
CPT/HCPCS: 36415; 80047; 81001; 85025; 96372; 99283; J2270; J2930

== ENCOUNTER → 2019-09-13 | Outpatient (CLI) | payer OTHER ==
[~2019-09-13] MED LIST changes: +CYCL-707 PO; +MEDR4PAK PO
--- NOTE | 2019-09-14 01:20 | REPPI ---
Clinical: Thoracic/rib pain Technique: Frontal view of the chest with eight views of the right and left hemithorax. Findings: Frontal view of the chest demonstrates no acute cardiopulmonary process. Multiple views of the right and left hemithorax demonstrates no obvious acute rib fracture or pathology. Impression: Normal bilateral rib series Electronically Signed by Julio James MD 09/14/2019 01:11 A
== END ==
LOC: M PLAIMG 09:04
PROVIDERS: ATTEND Physician Assistant
DX: I10 Essential (primary) hypertension (principal)

== ENCOUNTER → 2019-11-23 | Outpatient (CLI) | payer OTHER | LOC: M LABSMTC 11:05 | PROVIDERS: ATTEND Family Medicine | DX: R53.83 Other fatigue (principal); E78.2 Mixed hyperlipidemia; Z11.59 Encounter for screening for other viral diseases; Z20.828 Contact with and (suspected) exposure to other viral communicable diseases | CPT/HCPCS: 36415; 80053; 80061; 84439; 84443; 85025; C9803 ==

== ENCOUNTER 2019-12-03 15:25 | Emergency (ER) | payer OTHER | END 2019-12-03 16:25 | disposition home or self-care (01) | LOC: M ED 15:25 | DX: S92.511A Displaced fracture of proximal phalanx of right lesser toe(s), initial encounter for closed fracture (principal); W22.8XXA Striking against or struck by other objects, initial encounter; Y92.099 Unspecified place in other non-institutional residence as the place of occurrence of the external cause; Y93.9 Activity, unspecified; Y99.9 Unspecified external cause status; I10 Essential (primary) hypertension; Z79.899 Other long term (current) drug therapy; Z88.1 Allergy status to other antibiotic agents; Z88.0 Allergy status to penicillin ==

== ENCOUNTER → 2019-12-07 | Outpatient (CLI) | payer OTHER ==
[2020-02-27 09:31] LABS: BASO # 0.1 10^3/uL (0.0-0.2); BASO % 1.3 % (0.0-1.0); EOS # 0.1 10^3/uL (0.0-0.5); EOS % 0.8 % (0.0-3.0); HEMATOCRIT 46.4 % (42.0-52.0); HEMOGLOBIN 16.1 g/dl (13.5-17.5); LYMPH # 3.1 10^3/uL (1.5-5.0); LYMPH % 40.8 % (24.0-44.0); MEAN CORPUSCULAR HEMOGLOBIN 31.2 pg (27.0-33.0); MEAN CORPUSCULAR HGB CONC 34.7 g/dl (32.0-36.5); MEAN CORPUSCULAR VOLUME 89.9 fl (80.0-96.0); MONO # 0.6 10^3/uL (0.0-0.8); MONO % 8.2 % (0.0-5.0); NEUTROPHILS # 3.7 10^3/uL (1.5-8.5); NEUTROPHILS % 48.6 % (36.0-66.0); PLATELET COUNT, AUTOMATED 388 10^3/uL (150-450); RED BLOOD COUNT 5.16 10^6/uL (4.30-6.10); WHITE BLOOD COUNT 7.6 10^3/uL (4.0-10.0)
== END ==
LOC: M LAB 09:21
PROVIDERS: ATTEND Physician Assistant Medical
DX: R53.83 Other fatigue (principal); E78.2 Mixed hyperlipidemia

== ENCOUNTER → 2020-03-15 | Outpatient (CLI) | payer OTHER | LOC: M LAB 14:05 | PROVIDERS: ATTEND Physician Assistant Medical | DX: M54.5 Low back pain (principal) ==

== ENCOUNTER → 2020-05-04 | Outpatient (CLI) | payer SELFPAY | LOC: M LABSMTC 11:02 | PROVIDERS: ATTEND Pediatrics | DX: Z20.822 Contact with and (suspected) exposure to COVID-19 (principal) ==

== ENCOUNTER 2020-08-29 21:20 | Emergency (ER) | payer OTHER, SELFPAY ==
[~2020-08-29] VITALS: Ht 182.9 cm; Wt 78.3 kg
[2020-08-29] MEDS ORDERED: LOSA50TA88 PO (21:36)
[2020-08-29] MEDS ORDERED: NORV5TAB PO (21:36)
[2020-08-29] MEDS ORDERED: BOOSTRIX/ADACEL VACCINE (DIPHTH/PERTUSS/ACELL/TETANUS) 0.5ML SYR IM ONE (22:25)
[2020-08-29] MEDS ORDERED: LIDOCAINE 1% MDV 20ML VIAL SC ONE (22:25)
[2020-08-29] MEDS ORDERED: LIDOCAINE 1% MDV 20ML VIAL As Ordered ONE (22:25)
[2020-08-29 22:58] VITALS: BP 157/103
== END 2020-08-29 23:20 | disposition home or self-care (01) ==
LOC: M ED 21:20
DX: S51.812A Laceration without foreign body of left forearm, initial encounter (principal); W26.0XXA Contact with knife, initial encounter; Y92.099 Unspecified place in other non-institutional residence as the place of occurrence of the external cause; Y93.89 Activity, other specified; Y99.9 Unspecified external cause status; I10 Essential (primary) hypertension; Z88.0 Allergy status to penicillin; Z88.1 Allergy status to other antibiotic agents

== ENCOUNTER 2020-09-22 12:56 | Emergency (ER) | payer OTHER ==
[~2020-09-22] VITALS: Ht 182.9 cm; Wt 84.1 kg
[~2020-09-22 12:56] MED LIST changes: +LOSA50TA88 PO; +NORV5TAB PO
[2020-09-22] MEDS ORDERED: BUPR1FIL PO (13:44)
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
[2020-09-22 14:45] VITALS: BP 184/94
== END 2020-09-22 14:49 | disposition home or self-care (01) ==
LOC: EDSEX 12:56 → EDBD 12:56 → M ED 12:56
DX: S02.2XXA Fracture of nasal bones, initial encounter for closed fracture (principal); V43.52XA Car driver injured in collision with other type car in traffic accident, initial encounter; Y92.9 Unspecified place or not applicable; Y93.9 Activity, unspecified; Y99.9 Unspecified external cause status; I10 Essential (primary) hypertension; Z79.899 Other long term (current) drug therapy; Z88.0 Allergy status to penicillin; Z88.1 Allergy status to other antibiotic agents

== ENCOUNTER → 2021-01-15 | Outpatient (CLI) | payer OTHER ==
[~2021-01-15] MED LIST changes: +BUPR1FIL PO
[2021-01-15 14:20] LABS: HEMATOCRIT 39.3 % (42.0-52.0); HEMOGLOBIN 13.2 g/dl (13.5-17.5); MEAN CORPUSCULAR HEMOGLOBIN 29.1 pg (27.0-33.0); MEAN CORPUSCULAR HGB CONC 33.6 g/dl (32.0-36.5); MEAN CORPUSCULAR VOLUME 86.8 fl (80.0-96.0); PLATELET COUNT, AUTOMATED 304 10^3/uL (150-450); RED BLOOD COUNT 4.53 10^6/uL (4.30-6.10); WHITE BLOOD COUNT 6.9 10^3/uL (4.0-10.0)
[2021-01-15 14:38] LABS: ALT/SGPT 26 U/L (12-78); BILIRUBIN,TOTAL 0.3 MG/DL (0.2-1.0); BLOOD UREA NITROGEN 14 MG/DL (7-18); CALCIUM LEVEL 9.6 MG/DL (8.5-10.1); CARBON DIOXIDE LEVEL 27 MEQ/L (21-32); CHLORIDE LEVEL 107 MEQ/L (98-107); CREATININE FOR GFR 0.78 MG/DL (0.70-1.30); GLOMERULAR FILTRATION RATE > 60.0 (>60); GLUCOSE, FASTING 93 MG/DL (70-100); POTASSIUM SERUM 4.4 MEQ/L (3.5-5.1); SODIUM LEVEL 139 MEQ/L (136-145); TOTAL PROTEIN 7.3 GM/DL (6.4-8.2)
[2021-01-15 14:58] LABS: HEPATITIS B SURFACE ANTIGEN NEGATIVE (NEGATIVE)
[2021-01-15 15:26] LABS: HIV 1&2 SCREEN CENTAUR NEGATIVE (NEGATIVE)
[2021-01-15 15:33] LABS: HEPATITIS C VIRUS ABY INDEX > 11.0 INDEX (<0.8)
--- NOTE | 2021-01-15 16:06 | ECGEPIP ---
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
[2021-01-15 18:37] LABS: GC DNA AMPLIFICATION NEGATIVE (NEGATIVE)
== END ==
LOC: M LAB 13:12
PROVIDERS: ATTEND Family Medicine
DX: F11.20 Opioid dependence, uncomplicated (principal)